=== PATIENT | male | born 1975 | race Caucasian/White ===

== ENCOUNTER 2017-05-12 17:12 | Inpatient (IN) ==
[2017-05-12] MEDS ORDERED: ONDANSETRON 4 MG/2 ML VIAL IV ONE ×2 (18:25→20:26)
[2017-05-12] MEDS ORDERED: SODIUM CHLORIDE 0.9% 1,000 ML IV STA ×2 (18:25→20:26)
[2017-05-12] MEDS ORDERED: ACETAMINOPHEN 500 MG TABLET PO STA (18:25)
[2017-05-12] MEDS ORDERED: ONDANSETRON 4 MG/2 ML VIAL ONE ×2 (18:42→20:48)
[2017-05-12] MEDS ORDERED: ACETAMINOPHEN 500 MG TABLET ONE (18:42)
[2017-05-12 19:27] LABS: Basophils # 0.1 10*3/uL (0.0-0.2); Basophils % 0.3 % (0.0-0.8); Eosinophils % 0.1 % (0.00-10.9); Hemoglobin 15.7 GM/DL (14.0-18.0); Immature Granulocytes % 0.4 %; Immature Granulocytes Absolute 0.08 #; Lymphocytes # 0.9 10*3/uL (1.4-4.0); Lymphocytes % 4.6 % (21.2-54.2); Mean Corpuscular HGB Conc 34.9 GM/DL (32-36); Mean Corpuscular Hemoglobin 31 PG (27-34); Mean Corpuscular Volume 87.7 FL (87-102); Mean Platelet Volume 11.3 FL (9.6-12.0); Monocytes # 1.5 10*3/uL (0.11-0.8); Monocytes % 7.6 % (1.7-12.7); Neutrophils # 16.9 10*3/uL (1.4-7.4); Platelet Count 153 T/CUMM (130-400); Red Blood Count 5.13 MC/CUMM (3.8-5.5); Red Cell Distribution Width 13.3 % (9.3-17.3); White Blood Count 19.4 T/CUMM (4-12)
[2017-05-12 19:40] LABS: Lactic Acid 1.9 MMOL/L (0.4-2.0)
[2017-05-12 19:47] LABS: Albumin 3.7 G/DL (3.4-5.0); Bilirubin,Total 0.4 MG/DL (0.2-1.0); Calcium 8.7 MG/DL (8.5-10.1); Potassium 3.6 MMOL/L (3.5-5.1); Total Protein 6.6 G/DL (6.4-8.3)
[2017-05-12 20:02] LABS: Apearance,Urine CLEAR (Clear); Bilirubin,Urine Negative (Negative); Blood, Urine Negative (Negative); Glucose,Urine (UA) Negative (Negative); Ketones,Urine Negative (Negative); Mucus,Urine Few /LPF (Occasional); Nitrite,Urine Negative (Negative); Protein,Urine Negative; RBC,Urine 1 /HPF (0-4); Squamous Epithelial Cell,Urine Occasional /HPF (0-10); Urine Color Yellow (Yellow); Urine Specific Gravity 1.049 (1.001-1.035); Urine Urobilinogen < 2.0 EU/DL (0.2-1.0); WBC,Urine 1 /HPF (0-6)
[2017-05-12] MEDS ORDERED: MORPHINE 2 MG/1 ML SYRINGE IV PRN (20:39)
[2017-05-12] MEDS ORDERED: ONDANSETRON 4 MG/2 ML VIAL IV PRN (20:39)
[2017-05-12 21:27] LABS: Band Neutrophils 14 % (0-10); Lymphocytes 2 % (20-55); Platelet Estimate Adequate; Segmented Neutrophils 75 % (50-85); Total Cells Counted 100
[2017-05-12] MEDS ORDERED: INFLUENZA VIRUS VACCINE 0.5 ML SYRINGE IM ONE (22:15)
[2017-05-12] MEDS: DEXTROSE 5% NACL 0.45% 1,000 ML IV SCH (22:36)
[2017-05-12] MEDS: LEVOFLOXACIN INJ 750 MG in PREMIX 1 EACH IV SCH (22:36)
[2017-05-13] MEDS: metroNIDAZOLE INJ 500 MG in PREMIX 1 EACH IV SCH ×4 (00:05→23:19)
[2017-05-13] MEDS: ACETAMINOPHEN 325 MG TABLET PO PRN ×2 (05:58→21:59)
[2017-05-13] MEDS: DEXTROSE 5% NACL 0.45% 1,000 ML IV SCH ×2 (06:54→23:15)
[2017-05-13] MEDS: PANTOPRAZOLE 40 MG VIAL IV SCH (08:37)
[2017-05-13] MEDS ORDERED: TISSUE ADHESIVE 1 EACH APPLICATOR TOP ONE (09:56)
[2017-05-13] MEDS ORDERED: BUPIVACAINE 0.25% 50 ML VIAL ONE (09:57)
[2017-05-13] MEDS ORDERED: PROPOFOL 200 MG/20 ML VIAL IV ONE (11:05)
[2017-05-13] MEDS ORDERED: fentaNYL 100 MCG/2 ML VIAL ONE (11:06)
[2017-05-13] MEDS ORDERED: SEVOFLURANE 1 UNIT/15 MINUTE INH ONE (11:06)
[2017-05-13] MEDS ORDERED: ONDANSETRON 4 MG/2 ML VIAL ONE (11:06)
[2017-05-13] MEDS ORDERED: MIDAZOLAM 2 MG/2 ML VIAL ONE (11:06)
[2017-05-13] MEDS ORDERED: KETOROLAC 30 MG/1 ML VIAL ONE (11:06)
[2017-05-13] MEDS ORDERED: GLYCOPYRROLATE 0.4 MG/2 ML VIAL ONE (11:06)
[2017-05-13] MEDS ORDERED: DEXAMETHASONE 10 MG/1 ML VIAL ONE (11:06)
[2017-05-13] MEDS ORDERED: ROCURONIUM 100 MG/10 ML VIAL IV ONE (11:07)
[2017-05-13] MEDS ORDERED: NEOSTIGMINE 10 MG/10 ML VIAL ONE (11:07)
[2017-05-13] MEDS ORDERED: ATORVASTATIN 10 MG TABLET PO SCH (21:00)
[2017-05-13] MEDS ORDERED: OLANZapine 2.5 MG TABLET PO SCH (21:00)
[2017-05-13] MEDS: LEVOFLOXACIN INJ 750 MG in PREMIX 1 EACH IV SCH (21:57)
[2017-05-14] MEDS: metroNIDAZOLE INJ 500 MG in PREMIX 1 EACH IV SCH (06:08)
[2017-05-14] MEDS: DEXTROSE 5% NACL 0.45% 1,000 ML IV SCH (06:40)
[2017-05-14] MEDS: PANTOPRAZOLE 40 MG VIAL IV SCH (09:29)
[2017-05-14 10:43] LABS: Basophils % 0.2 % (0.0-0.8); Eosinophils # 0.1 10*3/uL (0.0-0.87); Eosinophils % 0.4 % (0.00-10.9); Hematocrit 41.8 VOL% (42.0-52.0); Hemoglobin 14.1 GM/DL (14.0-18.0); Immature Granulocytes % 0.5 %; Immature Granulocytes Absolute 0.06 #; Lymphocytes # 1.9 10*3/uL (1.4-4.0); Mean Corpuscular HGB Conc 33.7 GM/DL (32-36); Mean Corpuscular Hemoglobin 30 PG (27-34); Mean Corpuscular Volume 89.3 FL (87-102); Mean Platelet Volume 11.9 FL (9.6-12.0); Monocytes # 1.1 10*3/uL (0.11-0.8); Monocytes % 8.9 % (1.7-12.7); Neutrophils # 8.9 10*3/uL (1.4-7.4); Platelet Count 152 T/CUMM (130-400); Red Blood Count 4.68 MC/CUMM (3.8-5.5); Red Cell Distribution Width 13.2 % (9.3-17.3); White Blood Count 12.1 T/CUMM (4-12)
[2017-05-14 12:24] VITALS: BP 136/80
== END 2017-05-14 13:25 | disposition home or self-care (01) | DRG 854 ==
LOC: EDUNIT# → N.ED 17:12 → N.EDINP 20:39 → N.3E 21:28
PROVIDERS: ADMIT Emergency Medicine Emergency Medical Services; ATTEND Emergency Medicine Emergency Medical Services

== ENCOUNTER 2018-07-12 17:28 | Inpatient (IN) ==
[2018-07-12] MEDS ORDERED: cloNIDine 0.1 MG TABLET PO PRN (18:46)
[2018-07-12] MEDS ORDERED: THIAMINE INJ 100 MG, FOLIC ACID INJ 1 MG, MULTIVITAMIN INJ 10 ML in SODIUM CHLORIDE 0.9... IV ONE (18:47)
[2018-07-12] MEDS ORDERED: BISACODYL 5 MG TABLET PO PRN (18:49)
[2018-07-12] MEDS ORDERED: NICOTINE 21 MG/24 HR PATCH TRANSDERM PRN (18:49)
[2018-07-12] MEDS ORDERED: DOCUSATE SODIUM 100 MG CAPSULE PO PRN (18:49)
[2018-07-12] MEDS: chlordiazePOXIDE 25 MG CAPSULE PO SCH (19:05)
[2018-07-12] MEDS: BUPRENORPHINE SL TAB 2 MG TABLET SL SCH (19:06)
[2018-07-12 19:30] LABS: Basophils # 0.1 10*3/uL (0.0-0.2); Basophils % 0.6 % (0.0-0.8); Eosinophils # 0.2 10*3/uL (0.0-0.87); Hematocrit 49.8 VOL% (42.0-52.0); Hemoglobin 16.6 GM/DL (14.0-18.0); Immature Granulocytes % 0.3 %; Immature Granulocytes Absolute 0.02 #; Lymphocytes % 37.9 % (21.2-54.2); Mean Corpuscular HGB Conc 33.3 GM/DL (32-36); Mean Corpuscular Hemoglobin 30 PG (27-34); Mean Corpuscular Volume 90.7 FL (87-102); Mean Platelet Volume 11.3 FL (9.6-12.0); Monocytes # 0.7 10*3/uL (0.11-0.8); Monocytes % 8.6 % (1.7-12.7); Neutrophils # 3.9 10*3/uL (1.4-7.4); Neutrophils % 49.6 % (38.7-73.9); Platelet Count 165 T/CUMM (130-400); Red Blood Count 5.49 MC/CUMM (3.8-5.5); Red Cell Distribution Width 12.6 % (9.3-17.3); White Blood Count 7.8 T/CUMM (4-12)
[2018-07-12 20:03] LABS: Troponin I 0.021 NG/ML (0.00-0.045)
[2018-07-12 20:10] LABS: Alanine Aminotransferase 21 U/L (16-61); Albumin 3.3 G/DL (3.4-5.0); Alkaline Phosphatase 67 U/L (45-117); Aspartate Amino Transferase 15 U/L (0-37); Bilirubin,Total < 0.39 MG/DL (0.2-1.0); Blood Urea Nitrogen 9 MG/DL (7-18); Calcium 8.3 MG/DL (8.5-10.1); Glucose 132 MG/DL (74-106); Osmolality,Calculated 281.3 MOS/KG (273-304); Potassium 3.7 MMOL/L (3.5-5.1); Sodium 141 MMOL/L (136-145); Total Protein 6.4 G/DL (6.4-8.3)
[2018-07-12] MEDS ORDERED: ACETAMINOPHEN 325 MG TABLET PO PRN (20:55)
[2018-07-12] MEDS: ENOXAPARIN 40 MG/0.4 ML SYRINGE SUBCUT SCH (21:07)
[2018-07-12 23:12] LABS: Apearance,Urine CLEAR (Clear); Bilirubin,Urine Negative (Negative); Blood, Urine Negative (Negative); Glucose,Urine (UA) Negative (Negative); Ketones,Urine Negative (Negative); Mucus,Urine Occasional /LPF (Occasional); Nitrite,Urine Negative (Negative); Protein,Urine Negative; RBC,Urine 1 /HPF (0-4); Urine Color Yellow (Yellow); Urine Specific Gravity 1.015 (1.001-1.035); Urine Urobilinogen < 2.0 EU/DL (0.2-1.0); WBC,Urine 1 /HPF (0-6)
[2018-07-13] MEDS: chlordiazePOXIDE 25 MG CAPSULE PO SCH ×4 (00:20→18:13)
[2018-07-13] MEDS: ONDANSETRON 4 MG/2 ML VIAL IV PRN ×2 (00:22→07:29)
[2018-07-13] MEDS: BUPRENORPHINE SL TAB 2 MG TABLET SL SCH ×3 (03:44→18:14)
[2018-07-13 05:48] LABS: Risk Ratio 5.32
[2018-07-13] MEDS: HydrOXYzine PAMOATE 25 MG CAPSULE PO PRN (06:35)
[2018-07-13] MEDS: SODIUM CHLORIDE 0.9% 1,000 ML IV SCH ×2 (07:30→23:03)
[2018-07-13] MEDS: PANTOPRAZOLE 40 MG TABLET PO SCH (10:45)
[2018-07-13] MEDS: OMEGA 3 ACID ETHYL ESTERS 1 GM CAPSULE PO SCH ×2 (10:46→20:47)
[2018-07-13] MEDS: PROMETHAZINE INJ 25 MG in SODIUM CHLORIDE 0.9% 50 ML IV PRN (12:49)
[2018-07-13] MEDS: ENOXAPARIN 40 MG/0.4 ML SYRINGE SUBCUT SCH (20:48)
[2018-07-14] MEDS: BUPRENORPHINE SL TAB 2 MG TABLET SL SCH ×3 (02:47→18:17)
[2018-07-14] MEDS: chlordiazePOXIDE 25 MG CAPSULE PO SCH ×3 (02:47→18:17)
[2018-07-14] MEDS: PANTOPRAZOLE 40 MG TABLET PO SCH (09:54)
[2018-07-14] MEDS: OMEGA 3 ACID ETHYL ESTERS 1 GM CAPSULE PO SCH ×2 (09:54→20:41)
[2018-07-14] MEDS: FENOFIBRATE 145 MG TABLET PO SCH (09:54)
[2018-07-14] MEDS: HydrOXYzine PAMOATE 25 MG CAPSULE PO PRN (09:55)
[2018-07-14] MEDS: PROMETHAZINE INJ 25 MG in SODIUM CHLORIDE 0.9% 50 ML IV PRN (09:55)
[2018-07-14] MEDS: SODIUM CHLORIDE 0.9% 1,000 ML IV SCH (11:41)
[2018-07-14] MEDS ORDERED: ALUM/MAG/SIMETH/LIDO VISC 1:1 30 ML BOTTLE PO ONE (12:12)
[2018-07-14] MEDS: ENOXAPARIN 40 MG/0.4 ML SYRINGE SUBCUT SCH (20:41)
[2018-07-14] MEDS: ONDANSETRON 4 MG/2 ML VIAL IV PRN (20:41)
[2018-07-15] MEDS: chlordiazePOXIDE 25 MG CAPSULE PO SCH (02:13)
[2018-07-15] MEDS: SODIUM CHLORIDE 0.9% 1,000 ML IV SCH (04:24)
[2018-07-15] MEDS: BUPRENORPHINE SL TAB 2 MG TABLET SL SCH (06:10)
[2018-07-15 08:40] VITALS: BP 101/80
[2018-07-15] MEDS: FENOFIBRATE 145 MG TABLET PO SCH (09:55)
[2018-07-15] MEDS: PANTOPRAZOLE 40 MG TABLET PO SCH (09:55)
[2018-07-15] MEDS: OMEGA 3 ACID ETHYL ESTERS 1 GM CAPSULE PO SCH (09:55)
== END 2018-07-15 09:45 | disposition home or self-care (01) | DRG 897 ==
LOC: N.4E 17:32
PROVIDERS: ADMIT Internal Medicine; ATTEND Internal Medicine